=== PATIENT | male | born 1965 | race Two or more races ===

== ENCOUNTER 2022-08-09 21:50 | Inpatient (IN) | payer MEDICARE, OTHER ==
[~2022-08-09] VITALS: Ht 157.5 cm; Wt 68.0 kg
--- NOTE | 2022-08-09 22:59 | NUR ---
SHRUTHI FROM [facility] FOR AN EPISODE OF BRIGHT RED BLOOD IN THE STOOL. PT AWAKE AND ALERT X4 BREATHING UNLABORED. REPORTS MILD ABD DISCOMOFRT. PLACED ON MONITOR AND V/S WNL.
[2022-08-09] MEDS ORDERED: IV NS 0.9% 1,000 ML BAG IV ONE (23:00)
--- NOTE | 2022-08-09 23:31 | NUR ---
20G IV ESTABLISHED AT . BLOOD DRAWN AND SENT TO LAB
--- NOTE | 2022-08-09 23:53 | NUR ---
PT BEING TRANSPORTED TO [facility]
[2022-08-09] MEDS ORDERED: CT SWABBABLE VALVE TRANS SET 1 EA INFUS.SET MC ONE (23:55)
[2022-08-09] MEDS ORDERED: IOHEXOL-300 100 ML VIAL IV ONE (23:55)
[2022-08-09] MEDS ORDERED: IV NS 0.9% 250 ML IV ONE (23:55)
[2022-08-09 23:57] LABS: BASOPHILS # (AUTO) 0.1 K/uL (0.0-0.2); EOSINOPHILS % (AUTO) 4.8 % (0.0-6.0); HEMATOCRIT 37 % (39-51); LYMPHOCYTES # (AUTO) 1.3 K/uL (0.8-4.8); LYMPHOCYTES % (AUTO) 17.6 % (20.0-44.0); MEAN CORPUSCULAR HGB CONC 35 g/dl (31.0-36.0); MEAN CORPUSCULAR VOLUME 89 fL (80-96); MONOCYTES # (AUTO) 0.5 K/uL (0.1-1.30); MONOCYTES % (AUTO) 7.3 % (2.0-12.0); NEUTROPHILS # (AUTO) 5.1 K/uL (1.8-8.9); NEUTROPHILS % (AUTO) 69.3 % (43.0-81.0); PLATELET COUNT (AUTO) 311 K/uL (150-450); RED BLOOD CELL COUNT(AUTO) 4.21 MIL/uL (4.5-6.0); WHITE BLOOD COUNT (AUTO) 7.4 K/uL (4.3-11.0)
[2022-08-10 00:19] LABS: CALCIUM, SERUM 8.4 mg/dL (8.5-10.1); CREATININE 1.5 mg/dL (0.6-1.3); POTASSIUM 3.9 mmol/L (3.5-5.1)
[2022-08-10 00:40] LABS: ALBUMIN 2.6 g/dL (3.4-5.0); BILIRUBIN,DIRECT 0.1 mg/dL (0.0-0.2); BILIRUBIN,TOTAL 0.2 mg/dL (0.2-1.0); TOTAL PROTEIN, SERUM 6.3 g/dL (6.4-8.2)
--- NOTE | 2022-08-10 00:45 | NUR ---
URINE COLLECTED AND SENT TO LAB
[2022-08-10 01:01] LABS: BILIRUBIN,URINE NEGATIVE (NEGATIVE); LEUKOCYTE ESTERASE ,URINE SMALL (NEGATIVE); NITRITE, URINE NEGATIVE (NEGATIVE); PROTEIN,URINE NEGATIVE (NEGATIVE); UGLUCOSE NEGATIVE (NEGATIVE); UROBILINOGEN,URINE 0.2 EU/dL (0.2)
[2022-08-10 01:02] LABS: COLOR,URINE LIGHT YELLOW (YELLOW)
--- NOTE | 2022-08-10 01:40 | NUR ---
RICHARDSON COLLECTED AND SENT TO LAB
[2022-08-10] MEDS ORDERED: MAGNESIUM HYDROXIDE 30 ML UDC PO PRN (03:00)
[2022-08-10] MEDS ORDERED: MAG HYDROX/AL HYDROX/SIMETH 30 ML UDC PO PRN (03:00)
[2022-08-10] MEDS ORDERED: Z GUARD REMEDY 4 OZ OINT TP PRN (03:00)
[2022-08-10] MEDS ORDERED: ONDANSETRON HCL/PF 4 MG/2 ML VIAL IVP PRN (03:00)
--- NOTE | 2022-08-10 04:11 | NUR ---
320 BED 2
--- NOTE | 2022-08-10 04:36 | NUR ---
POOL FINISHER AT PT'S BEDSIDE
--- NOTE | 2022-08-10 04:37 | NUR ---
LAB AT BEDSIDE FOR BLOOD DRAW
[2022-08-10 04:57] LABS: BASOPHILS # (AUTO) 0.1 K/uL (0.0-0.2); BASOPHILS % (AUTO) 0.8 % (0.0-2.0); EOSINOPHILS % (AUTO) 4.4 % (0.0-6.0); HEMATOCRIT 36 % (39-51); HEMOGLOBIN 12.6 g/dL (13.5-17.5); LYMPHOCYTES # (AUTO) 1.1 K/uL (0.8-4.8); LYMPHOCYTES % (AUTO) 14.6 % (20.0-44.0); MEAN CORPUSCULAR HGB CONC 35 g/dl (31.0-36.0); MEAN CORPUSCULAR VOLUME 89 fL (80-96); MONOCYTES # (AUTO) 0.6 K/uL (0.1-1.30); MONOCYTES % (AUTO) 7.9 % (2.0-12.0); NEUTROPHILS # (AUTO) 5.5 K/uL (1.8-8.9); NEUTROPHILS % (AUTO) 72.3 % (43.0-81.0); PLATELET COUNT (AUTO) 310 K/uL (150-450); RED BLOOD CELL COUNT(AUTO) 4.04 MIL/uL (4.5-6.0); WHITE BLOOD COUNT (AUTO) 7.6 K/uL (4.3-11.0)
[2022-08-10 05:14] LABS: ALBUMIN 2.4 g/dL (3.4-5.0); BILIRUBIN,TOTAL 0.2 mg/dL (0.2-1.0); CREATININE 1.4 mg/dL (0.6-1.3); MAGNESIUM 2.1 mg/dL (1.8-2.4); POTASSIUM 3.6 mmol/L (3.5-5.1)
[2022-08-10 05:25] LABS: THYROID STIMULATING HORMONE 2.72 uIU/mL (0.358-3.74)
[2022-08-10] MEDS ORDERED: CEPH500C2 PO (06:14)
[2022-08-10] MEDS ORDERED: ASPI-1169 PO (06:14)
[2022-08-10] MEDS ORDERED: LEVE500T9 PO (06:14)
[2022-08-10] MEDS ORDERED: PANT40TA49 PO (06:14)
[2022-08-10] MEDS ORDERED: METO25TA4 PO (06:14)
[2022-08-10] MEDS ORDERED: CYAN500T64 PO (06:14)
--- NOTE | 2022-08-10 06:19 | NUR ---
REPORT GIVEN TO AARON
--- NOTE | 2022-08-10 06:30 | NUR ---
RN NOTE PATIENT ARRIVED TO UNIT VIA GURNEY FROM ER STABLE. A/OX4. NO S/S OF DISTRESS, BREATHING WITHOUT DIFFICULTY ON ROOM AIR. SAFETY MEASURES IN PLACE: BED LOCKED IN PLACE AND AT LOWEST POSITION, RAILS UP X2, CALL DIANA WITHIN REACH. HAND-OFF TO SALOME.
--- NOTE | 2022-08-10 06:43 | NUR ---
PT WAS TRANSFERRED TO [facility] UNDER ACLS
[2022-08-10 07:52] LABS: BACTERIA,URINE None seen /HPF (None Seen); SQUAMOUS EPITHELIAL CELL,UR None Seen /HPF (None Seen); WBC,URINE 0-2 /HPF (0-3)
[2022-08-10 08:00] VITALS: BP 128/82
[2022-08-10] MEDS: PANTOPRAZOLE 40 MG VIAL IV SCH ×2 (10:03→16:45)
[2022-08-10] MEDS: IV D5W 1,000 ML IV PRN (10:30)
[2022-08-10 13:43] VITALS: BP 116/78
[2022-08-10 16:16] VITALS: BP 108/78
--- NOTE | 2022-08-10 18:58 | NUR ---
SHORE MAN CLOSING NOTE PATIENT ADMITTED TO UNIT @ 0630. RECEIVED IN BED AND SLEEPING. NO ACUTE PAIN OR DISTRESS OBSERVED OR REPORTED THROUGHOUT SHIFT. IV ACCESS TO LFA 20G REMAINS INTACT AND PATENT AT THIS TIME. D5W RUNNING CONTINUOUSLY @ 75ML/HR. TOLERATING WELL AT THIS TIME. PATIENT REMAINS NPO STATUS. NO REPORT OF STOOL ON SHIFT, SO NO BLOOD IN STOOL OBSERVED. MONTE CATHETER IN PLACE AND FLOWING CLEAR, YELLOW URINE. URINE SPECIMEN SENT TO LAB FOR URINE CULTURE; RESULTS PENDING. SAFETY MEASURES IN TACT WITH BED LOW AND LOCKED. SIDERAIL UP X2, CALL LIGHT WITHIN REACH. WILL CONT TO MONITOR.
[2022-08-10 20:53] VITALS: BP 136/94
[2022-08-11 00:08] VITALS: BP 139/88
[2022-08-11] MEDS: CEFTRIAXONE 1 G in IV D5W 50 ML IV SCH (03:22)
[2022-08-11 04:33] VITALS: BP 130/82
[2022-08-11] MEDS: IV D5W 1,000 ML IV PRN ×2 (05:09→23:22)
--- NOTE | 2022-08-11 06:15 | NUR ---
END OF SHIFT REPORT Patient in bed, Alert Oriented x3. NPO IVF infusing. IV LFA intact, IVF infusing. On IV abx. Afebrile. Ambulated to the bathroom, no rectal bleed, no BM during the shift. H/H stable at this time. Denies pain, no N/V. Fall precaution maintained. GI consulted, monitor for Hgb. plan for Endoscopic eval with significant drop in Hgb. Will endorse to oncoming RN.
[2022-08-11 07:00] VITALS: BP 122/88
--- NOTE | 2022-08-11 07:20 | NUR ---
ms rn received on bed, awake,alert,oriented x3,new admission last night, dx. g i bleed, denies pain at this time, chambers intact to gravity bag w/ yellowish urine output,will monitor patient.
[2022-08-11] MEDS: PANTOPRAZOLE 40 MG VIAL IV SCH ×2 (09:46→16:55)
--- NOTE | 2022-08-11 10:00 | NUR ---
ms rn bloody catheter output bleeding, dr. lawler is aware, will have uro consult.change bag to new one, fixed urinary catheter, will monitor output.
[2022-08-11] MEDS: ACETAMINOPHEN 325 MG TABLET PO PRN ×2 (11:42→20:16)
[2022-08-11 12:00] VITALS: BP 119/73
[2022-08-11] MEDS: MORPHINE SULFATE INJ 2 MG/ML DISP.SYRIN IV PRN ×2 (14:49→19:14)
[2022-08-11] MEDS ORDERED: MORPHINE SULFATE INJ 2 MG/ML DISP.SYRIN IV PRN (15:00)
[2022-08-11 16:00] VITALS: BP 120/86
--- NOTE | 2022-08-11 18:44 | NUR ---
ms rn no bleeding notice at the catheter site at this time, patient denies pain at this time,will continue to monitor, family at bedside, update given.
[2022-08-11 20:00] VITALS: BP 120/86
--- NOTE | 2022-08-11 20:18 | NUR ---
PAIN Patient in bed, c/o rectal discomfort and mild pain. Assessment observed no rectal bleed, no swelling. Given Tylenol, will reassess.
[2022-08-12] VITALS: BP 114/76
[2022-08-12] MEDS: CEFTRIAXONE 1 G in IV D5W 50 ML IV SCH (03:36)
[2022-08-12 04:00] VITALS: BP 124/86
--- NOTE | 2022-08-12 06:14 | NUR ---
END OF SHIFT REPORT Patient in bed, Alert Oriented x3. Tolerating Clear liquids. IV in RFA, IVF infusing. On IV abx. Afebrile. No BM during the shift, no rectal bleed. H/H stable at this time. Rectal pain relieve with Tylenol PO. Per GI no EGD at this time. Koroma cath to gravity, output Tea colored dark brown urine 1000ml. Plan for Urology consult. Will endorse to oncoming RN.
[2022-08-12 07:00] LABS: BASOPHILS # (AUTO) 0.1 K/uL (0.0-0.2); BASOPHILS % (AUTO) 0.9 % (0.0-2.0); HEMATOCRIT 39 % (39-51); HEMOGLOBIN 13.5 g/dL (13.5-17.5); LYMPHOCYTES # (AUTO) 1.1 K/uL (0.8-4.8); LYMPHOCYTES % (AUTO) 17.5 % (20.0-44.0); MEAN CORPUSCULAR HGB CONC 35 g/dl (31.0-36.0); MEAN CORPUSCULAR VOLUME 88 fL (80-96); MONOCYTES # (AUTO) 0.5 K/uL (0.1-1.30); NEUTROPHILS # (AUTO) 4.4 K/uL (1.8-8.9); NEUTROPHILS % (AUTO) 69.6 % (43.0-81.0); PLATELET COUNT (AUTO) 329 K/uL (150-450); WHITE BLOOD COUNT (AUTO) 6.3 K/uL (4.3-11.0)
[2022-08-12 07:21] LABS: CALCIUM, SERUM 8.6 mg/dL (8.5-10.1); CREATININE 1.5 mg/dL (0.6-1.3); MAGNESIUM 2.4 mg/dL (1.8-2.4); POTASSIUM 3.7 mmol/L (3.5-5.1)
--- NOTE | 2022-08-12 07:50 | NUR ---
MS RN OPENING NOTE Pt received awake in bed. A/O x3. On room air, no signs of SOB or labored breathing. IV access at RFA #22 D5W infusing at 75 mL/hr. Will follow-up urology consult. Will continue to monitor. Addendum: 08/12/22 at 1152 by CORETTA MAYA RN Correction: GLAZE GRINDER OPENING NOTE (not MS RN OPENING NOTE)
[2022-08-12 08:00] VITALS: BP 114/73
[2022-08-12] MEDS: PANTOPRAZOLE 40 MG VIAL IV SCH ×2 (09:27→17:34)
--- NOTE | 2022-08-12 12:00 | NUR ---
MS RN WAS SEEN BY UROLOGIST,DR. MACIAS, WAITING FOR ORDERS.
--- NOTE | 2022-08-12 14:22 | NUR ---
Dr. East came to see patient. Waiting for orders. Addendum: 08/12/22 at 1507 by CORETTA MAYA RN Correction: Dr. Koroma
[2022-08-12 16:00] VITALS: BP 130/89
--- NOTE | 2022-08-12 18:32 | NUR ---
MS RN PATIENT WILL BE TRANSFERRED TO [facility] AT 8 PM, DISCHARGE INSTRUCTIONS GIVEN TO PATIENT, CALLED DAUGHTER, REPORT GIVEN TO OCTAVIO RN,ALL NEEDS ATTENDED.
--- NOTE | 2022-08-12 19:02 | NUR ---
RN NOTES: RECEIVED ENDORSEMENT FROM MORNING SHIFT, THIS RESIDENT IS WAITING FOR COVID TEST THEN DUE FOR DISCHARGE IN [facility], AMBULANCE ARRANGE, BELONGINGS CHECKED BY AM SHIFT, DISCHARGE PAPERS PREPARED AND DISCUSSED BY OUTGOING RN TO PATIENT, DISCHARGE INSTRUCTION GIVEN, AND REPORT WAS RELAYED TO RAMSES IN [facility] BY RN-MORNING SHIFT.HE WILL BE DC WITH MONTE CATH.
[2022-08-12 20:00] VITALS: BP 128/90
--- NOTE | 2022-08-12 20:05 | NUR ---
RN NOTES: -COMPLAINED OF GENERALIZED PAIN, HE ASKED FOR HIS ORAL MEDICATION, RN OFFERED NON PHARMACOLOGIC INTERVENTION, DIM LIT AND OFFERED WARM BLANKER, ORAL PRN GIVEN.
[2022-08-12] MEDS: ACETAMINOPHEN 325 MG TABLET PO PRN (20:09)
--- NOTE | 2022-08-12 20:14 | NUR ---
RN NOTES: FOLLOWED UP IN [facility]: [phone] FOR TRANSPORT, SPOKE WITH ANIKA, EMT ARE COMING TO [employer] THE PATIENT, AWAITING FOR THEIR ARRIVAL.
--- NOTE | 2022-08-12 20:36 | NUR ---
RN NOTES: AMBULANCE EMT ARRIVED.
--- NOTE | 2022-08-12 20:48 | NUR ---
RN NOTES: DISCHARGE TO [facility] AT 2047, WITH BELONGINGS AND DISCHARGE INSTRUCTION,IV CANNULA REMOVE, MONTE CATH IN PLACED, DRAINED 150CC OF URINE. Addendum: 08/12/22 at 2206 by NICK AREVALO RN ADDED NOTES: LATEST V/S bp-128/90 ND-82 RR-20 T-98 SPO2-98%
== END 2022-08-12 21:30 | DRG 377 ==
LOC: ER 22:17 → TELE 08-10 04:31
PROVIDERS: ADMIT Student in an Organized Health Care Education/Training Program; ATTEND Student in an Organized Health Care Education/Training Program
DX: K92.2 Gastrointestinal hemorrhage, unspecified (principal); N17.0 Acute kidney failure with tubular necrosis; E44.0 Moderate protein-calorie malnutrition; T83.83XA Hemorrhage due to genitourinary prosthetic devices, implants and grafts, initial encounter; N40.0 Benign prostatic hyperplasia without lower urinary tract symptoms; K72.90 Hepatic failure, unspecified without coma; D64.9 Anemia, unspecified; Z20.822 Contact with and (suspected) exposure to COVID-19; K76.82 Hepatic encephalopathy; K21.9 Gastro-esophageal reflux disease without esophagitis; N18.9 Chronic kidney disease, unspecified; I12.9 Hypertensive chronic kidney disease with stage 1 through stage 4 chronic kidney disease, or unspecified chronic kidney disease; Z79.82 Long term (current) use of aspirin; Z79.899 Other long term (current) drug therapy; G40.909 Epilepsy, unspecified, not intractable, without status epilepticus; E88.09 Other disorders of plasma-protein metabolism, not elsewhere classified; Y84.8 Other medical procedures as the cause of abnormal reaction of the patient, or of later complication, without mention of misadventure at the time of the procedure; Y92.239 Unspecified place in hospital as the place of occurrence of the external cause; R31.9 Hematuria, unspecified; R33.9 Retention of urine, unspecified
CPT/HCPCS: 36415; 80048-TC; 80053-TC; 80076-TC; 81001; 83690-TC; 83735-TC; 84100-TC; 84443-TC; 85025-TC; 85730-TC; 87081-TC; 87086-TC; C9113; C9803; G0378; J0696; J2270; J7030; J7050; J7060; J7070; Q9967